=== PATIENT | male | born 1935 ===

== ENCOUNTER 2023-04-01 10:03 | Emergency (ER) | payer MEDICARE, BC ==
[2023-04-01] MEDS ORDERED: Sodium Chloride 0.9% 10 ML Syringe FLUSH PRN (10:22)
[2023-04-01] MEDS ORDERED: Aspirin 81 MG Tab.Chew PO ONE (10:24)
[2023-04-01 10:27] LABS: ALANINE AMINOTRANSFERASE,ALT 40 U/L (12-78); ALKALINE PHOSPHATASE 93 IU/L (46-116); ASPARTATE AMNIOTRANSFERASE,AST 46 U/L (15-37); BILIRUBIN TOTAL 0.6 mg/dL (0.2-1.0); BLOOD UREA NITROGEN,BUN 38 mg/dL (7-18); CALCIUM 8.7 mg/dL (8.5-10.1); CARBON DIOXIDE,CO2 26.2 mmol/L (21.0-32.0); CHLORIDE,CL 94 mmol/L (98-107); ESTIMATED GFR 41 mL/min (>=60); GLUCOSE RANDOM 120 mg/dL (70-99); POTASSIUM,K 4.2 mmol/L (3.5-5.1); PROTEIN TOTAL,TP 7.6 g/dL (6.4-8.2); SODIUM,NA 130 mmol/L (136-145)
[2023-04-01 10:32] LABS: BASOPHILS ABSOLUTE AUTO 0.02 K/uL (0.00-0.20); BASOPHILS PERCENT AUTO 0.2 % (0.0-2.0); EOSINOPHILS ABSOLUTE AUTO 0.26 K/uL (0.00-0.50); EOSINOPHILS PERCENT AUTO 2.9 % (0.0-5.0); HEMATOCRIT 37.9 % (39.0-49.0); HEMOGLOBIN 12.7 g/dL (13.1-16.8); LYMPHOCYTES ABSOLUTE AUTO 1.52 K/uL (0.50-3.50); LYMPHOCYTES PERCENT AUTO 16.8 % (10.0-50.0); MEAN CORPUSCULAR HEMOGLOBIN 28.3 pg (28.2-33.3); MEAN CORPUSCULAR HGB CONC 33.5 g/dL (31.7-36.0); MEAN CORPUSCULAR VOLUME 84.4 fL (84.0-98.0); MONOCYTES ABSOLUTE AUTO 1.39 K/uL (0.00-1.00); MONOCYTES PERCENT AUTO 15.4 % (2.0-14.0); NEUTROPHILS ABSOLUTE AUTO 5.86 K/uL (1.40-7.00); NEUTROPHILS PERCENT AUTO 64.7 % (45.0-80.0); PLATELET COUNT,PLT 322 K/uL (150-350); RED BLOOD CELL COUNT 4.49 M/uL (4.33-5.41); RED CELL DISTRIBUTION WIDTH 13.8 % (11.2-14.1); WHITE BLOOD CELL COUNT,WBC 9.1 K/uL (4.0-10.2)
[2023-04-01 10:48] LABS: LACTIC ACID 1.6 mmol/L (0.4-2.0)
[2023-04-01 10:49] LABS: MAGNESIUM 2.4 mg/dL (1.8-2.4)
[2023-04-01 10:50] LABS: PRO B-TYPE NATRIUR PEPT,BNPPRO 5114 pg/mL (0-125)
[2023-04-01 10:52] LABS: PTT,PARTIAL THROMBOPLSTIN TIME 29.6 SEC (23.6-29.8)
[2023-04-01] MEDS ORDERED: Ondansetron 4 MG/2 ML SDV IVPUSH ONE (10:57)
[2023-04-01] MEDS ORDERED: Heparin Sodium 5,000 Units/ML Vial IVPUSH ONE (10:57)
[2023-04-01] MEDS ORDERED: Ticagrelor 90 MG Tab PO ONE (10:57)
[2023-04-01] MEDS ORDERED: Heparin Sodium/0.45% NaCl 500 ML IV SCH (11:00)
[2023-04-01] MEDS ORDERED: Sodium Chloride 0.9% 500 ML IV SCH (11:30)
[2023-04-01] MEDS ORDERED: atorvaSTATin 40 MG Tab PO ONE (11:42)
[2023-04-01] MEDS ORDERED: Metoprolol Tartrate 25 MG Tab PO ONE (11:43)
== END 2023-04-01 12:20 ==
LOC: LL.ED 10:03
DX: I21.3 ST elevation (STEMI) myocardial infarction of unspecified site (principal); I10 Essential (primary) hypertension; K21.9 Gastro-esophageal reflux disease without esophagitis; Z79.899 Other long term (current) drug therapy
CPT/HCPCS: 36415; 71045; 80053; 83605; 83735; 83880; 84484; 85025; 85379; 85610; 85730; 93005; 96365; 96375; 99285-25; A9270-GY; J1644; J2405; J7040

== ENCOUNTER 2023-04-03 17:54 | Emergency (ER) | payer MEDICARE, BC ==
[2023-04-03] MEDS ORDERED: Sodium Chloride 0.9% 10 ML Syringe FLUSH PRN (18:06)
[2023-04-03 18:13] LABS: BASOPHILS ABSOLUTE AUTO 0.02 K/uL (0.00-0.20); BASOPHILS PERCENT AUTO 0.2 % (0.0-2.0); EOSINOPHILS ABSOLUTE AUTO 0.19 K/uL (0.00-0.50); EOSINOPHILS PERCENT AUTO 1.9 % (0.0-5.0); HEMOGLOBIN 11.5 g/dL (13.1-16.8); LYMPHOCYTES ABSOLUTE AUTO 1.26 K/uL (0.50-3.50); LYMPHOCYTES PERCENT AUTO 12.6 % (10.0-50.0); MEAN CORPUSCULAR HEMOGLOBIN 28.6 pg (28.2-33.3); MEAN CORPUSCULAR HGB CONC 33.8 g/dL (31.7-36.0); MEAN CORPUSCULAR VOLUME 84.6 fL (84.0-98.0); MONOCYTES ABSOLUTE AUTO 1.31 K/uL (0.00-1.00); MONOCYTES PERCENT AUTO 13.1 % (2.0-14.0); NEUTROPHILS ABSOLUTE AUTO 7.22 K/uL (1.40-7.00); NEUTROPHILS PERCENT AUTO 72.2 % (45.0-80.0); PLATELET COUNT,PLT 377 K/uL (150-350); RED BLOOD CELL COUNT 4.02 M/uL (4.33-5.41); RED CELL DISTRIBUTION WIDTH 13.7 % (11.2-14.1)
[2023-04-03 18:34] LABS: INR 1.1 (0.9-1.1); PROTHROMBIN TIME 10.7 SEC (9.0-11.1)
[2023-04-03 18:38] LABS: ALANINE AMINOTRANSFERASE,ALT 46 U/L (12-78); ALBUMIN 2.8 g/dL (3.4-5.0); ALKALINE PHOSPHATASE 98 IU/L (46-116); ASPARTATE AMNIOTRANSFERASE,AST 54 U/L (15-37); BILIRUBIN TOTAL 0.4 mg/dL (0.2-1.0); BLOOD UREA NITROGEN,BUN 48 mg/dL (7-18); CALCIUM 8.1 mg/dL (8.5-10.1); CARBON DIOXIDE,CO2 22.4 mmol/L (21.0-32.0); CHLORIDE,CL 98 mmol/L (98-107); CREATININE 1.66 mg/dL (0.51-1.17); GLUCOSE RANDOM 120 mg/dL (70-99); MAGNESIUM 2.4 mg/dL (1.8-2.4); POTASSIUM,K 4.1 mmol/L (3.5-5.1); PRO B-TYPE NATRIUR PEPT,BNPPRO 7362 pg/mL (0-125); PROTEIN TOTAL,TP 6.9 g/dL (6.4-8.2); SODIUM,NA 132 mmol/L (136-145)
[2023-04-03 18:40] LABS: ANION GAP 15.7 meq/L (7-15); ESTIMATED GFR 39 mL/min (>=60)
[2023-04-03] MEDS: LORazepam 0.5 MG Tab PO ONE (19:03)
[2023-04-03] MEDS: Sodium Chloride 0.9% 500 ML IV SCH (19:55)
== END 2023-04-03 19:56 ==
LOC: LL.ED 17:54
DX: I48.91 Unspecified atrial fibrillation (principal); I11.0 Hypertensive heart disease with heart failure; I50.9 Heart failure, unspecified; K21.9 Gastro-esophageal reflux disease without esophagitis; Z87.891 Personal history of nicotine dependence; Z79.82 Long term (current) use of aspirin; Z79.899 Other long term (current) drug therapy; Z88.8 Allergy status to other drugs, medicaments and biological substances
CPT/HCPCS: 36415; 71045; 74018; 80053; 83605; 83735; 83880; 84484; 85025; 85379; 85610; 93005; 93010; 99284; 99285; A9270-GY; J7040

== ENCOUNTER 2023-04-07 08:43 | Inpatient (IN) | payer MEDICARE, BC ==
[2023-04-07] MEDS ORDERED: diphenhydrAMINE 25 MG Cap PO PRN (19:58)
[2023-04-07] MEDS: atorvaSTATin 40 MG Tab PO SCH (20:32)
[2023-04-07] MEDS: Ticagrelor 90 MG Tab PO SCH (20:32)
[2023-04-07] MEDS: Apixaban 5 MG Tab PO SCH (20:32)
[2023-04-07] MEDS: Nortriptyline 25 MG Cap PO SCH (20:32)
[2023-04-07] MEDS: Vitamin B Complex Tab PO SCH (20:32)
[2023-04-07] MEDS: Melatonin 3 MG Tab PO PRN (21:26)
[2023-04-07] MEDS: diphenhydrAMINE 25 MG Cap PO PRN (22:36)
[2023-04-08] MEDS: Omeprazole 20 MG Cap.CR PO SCH (07:17)
[2023-04-08] MEDS: Metoprolol Succinate 50 MG Tab.ER PO SCH (08:28)
[2023-04-08] MEDS: Ticagrelor 90 MG Tab PO SCH ×2 (08:28→17:38)
[2023-04-08] MEDS: Multivitamin Tab PO SCH (08:28)
[2023-04-08] MEDS: Apixaban 5 MG Tab PO SCH ×2 (08:28→17:38)
[2023-04-08] MEDS: Fish Oil/Omega-3 Fatty Acids 1 Gm Cap PO SCH (08:29)
[2023-04-08] MEDS: atorvaSTATin 40 MG Tab PO SCH (19:29)
[2023-04-08] MEDS: Nortriptyline 25 MG Cap PO SCH (19:29)
[2023-04-08] MEDS: Vitamin B Complex Tab PO SCH (19:29)
[2023-04-08] MEDS: Melatonin 3 MG Tab PO PRN (21:21)
[2023-04-09] MEDS: Fish Oil/Omega-3 Fatty Acids 1 Gm Cap PO SCH (07:21)
[2023-04-09] MEDS: Omeprazole 20 MG Cap.CR PO SCH (07:21)
[2023-04-09] MEDS: Multivitamin Tab PO SCH (07:21)
[2023-04-09] MEDS: Apixaban 5 MG Tab PO SCH ×2 (07:22→17:18)
[2023-04-09] MEDS: Metoprolol Succinate 50 MG Tab.ER PO SCH (07:23)
[2023-04-09] MEDS: Ticagrelor 90 MG Tab PO SCH ×2 (07:23→17:18)
[2023-04-09] MEDS ORDERED: Acetaminophen 325 MG Tab PO PRN (07:46)
[2023-04-09] MEDS: Nortriptyline 25 MG Cap PO SCH (19:23)
[2023-04-09] MEDS: Vitamin B Complex Tab PO SCH (19:23)
[2023-04-09] MEDS: atorvaSTATin 40 MG Tab PO SCH (19:23)
[2023-04-09] MEDS: Melatonin 3 MG Tab PO PRN (21:17)
[2023-04-09] MEDS: diphenhydrAMINE 25 MG Cap PO PRN (23:11)
[2023-04-10] MEDS: Omeprazole 20 MG Cap.CR PO SCH (07:31)
[2023-04-10] MEDS: Multivitamin Tab PO SCH (07:31)
[2023-04-10] MEDS: Metoprolol Succinate 50 MG Tab.ER PO SCH (07:31)
[2023-04-10] MEDS: Apixaban 5 MG Tab PO SCH ×2 (07:31→17:09)
[2023-04-10] MEDS: Fish Oil/Omega-3 Fatty Acids 1 Gm Cap PO SCH (07:31)
[2023-04-10] MEDS: Ticagrelor 90 MG Tab PO SCH ×2 (07:32→17:09)
[2023-04-10] MEDS: atorvaSTATin 40 MG Tab PO SCH (19:28)
[2023-04-10] MEDS: Vitamin B Complex Tab PO SCH (19:28)
[2023-04-10] MEDS: Nortriptyline 25 MG Cap PO SCH (19:28)
[2023-04-10] MEDS: diphenhydrAMINE 25 MG Cap PO PRN (22:51)
[2023-04-10] MEDS: Melatonin 3 MG Tab PO PRN (22:51)
[2023-04-11] MEDS: Multivitamin Tab PO SCH (07:25)
[2023-04-11] MEDS: Omeprazole 20 MG Cap.CR PO SCH (07:25)
[2023-04-11] MEDS: Metoprolol Succinate 50 MG Tab.ER PO SCH (07:25)
[2023-04-11] MEDS: Fish Oil/Omega-3 Fatty Acids 1 Gm Cap PO SCH (07:25)
[2023-04-11] MEDS: Ticagrelor 90 MG Tab PO SCH ×2 (07:25→17:29)
[2023-04-11] MEDS: Apixaban 5 MG Tab PO SCH ×2 (07:25→17:29)
[2023-04-11] MEDS: Nortriptyline 25 MG Cap PO SCH (19:22)
[2023-04-11] MEDS: Vitamin B Complex Tab PO SCH (19:22)
[2023-04-11] MEDS: atorvaSTATin 40 MG Tab PO SCH (19:22)
[2023-04-11] MEDS: Acetaminophen 500 MG Tab PO PRN (21:43)
[2023-04-11] MEDS: diphenhydrAMINE 25 MG Cap PO PRN (21:43)
[2023-04-12] MEDS: Fish Oil/Omega-3 Fatty Acids 1 Gm Cap PO SCH (07:55)
[2023-04-12] MEDS: Multivitamin Tab PO SCH (07:56)
[2023-04-12] MEDS: Omeprazole 20 MG Cap.CR PO SCH (07:56)
[2023-04-12] MEDS: Metoprolol Succinate 50 MG Tab.ER PO SCH (07:56)
[2023-04-12] MEDS: Apixaban 5 MG Tab PO SCH ×2 (07:56→17:23)
[2023-04-12] MEDS: Ticagrelor 90 MG Tab PO SCH ×2 (07:56→17:23)
[2023-04-12] MEDS: Nortriptyline 25 MG Cap PO SCH (19:20)
[2023-04-12] MEDS: Vitamin B Complex Tab PO SCH (19:20)
[2023-04-12] MEDS: atorvaSTATin 40 MG Tab PO SCH (19:20)
[2023-04-12] MEDS: Acetaminophen 500 MG Tab PO PRN (21:55)
[2023-04-13 07:28] LABS: BASOPHILS ABSOLUTE AUTO 0.03 K/uL (0.00-0.20); BASOPHILS PERCENT AUTO 0.4 % (0.0-2.0); EOSINOPHILS ABSOLUTE AUTO 0.25 K/uL (0.00-0.50); EOSINOPHILS PERCENT AUTO 3.1 % (0.0-5.0); HEMATOCRIT 33.7 % (39.0-49.0); HEMOGLOBIN 10.9 g/dL (13.1-16.8); LYMPHOCYTES ABSOLUTE AUTO 1.59 K/uL (0.50-3.50); LYMPHOCYTES PERCENT AUTO 19.8 % (10.0-50.0); MEAN CORPUSCULAR HEMOGLOBIN 28.1 pg (28.2-33.3); MEAN CORPUSCULAR HGB CONC 32.3 g/dL (31.7-36.0); MEAN CORPUSCULAR VOLUME 86.9 fL (84.0-98.0); MONOCYTES ABSOLUTE AUTO 0.89 K/uL (0.00-1.00); MONOCYTES PERCENT AUTO 11.1 % (2.0-14.0); NEUTROPHILS ABSOLUTE AUTO 5.29 K/uL (1.40-7.00); NEUTROPHILS PERCENT AUTO 65.6 % (45.0-80.0); PLATELET COUNT,PLT 373 K/uL (150-350); RED BLOOD CELL COUNT 3.88 M/uL (4.33-5.41); RED CELL DISTRIBUTION WIDTH 14.3 % (11.2-14.1); WHITE BLOOD CELL COUNT,WBC 8.1 K/uL (4.0-10.2)
[2023-04-13] MEDS: Omeprazole 20 MG Cap.CR PO SCH (07:51)
[2023-04-13] MEDS: Ticagrelor 90 MG Tab PO SCH ×2 (07:51→18:21)
[2023-04-13] MEDS: Apixaban 5 MG Tab PO SCH ×2 (07:51→18:20)
[2023-04-13] MEDS: Multivitamin Tab PO SCH (07:51)
[2023-04-13] MEDS: Fish Oil/Omega-3 Fatty Acids 1 Gm Cap PO SCH (07:51)
[2023-04-13] MEDS ORDERED: Metoprolol Succinate 25 MG Tab.ER PO SCH (08:00)
[2023-04-13 08:06] LABS: ANION GAP 7.2 meq/L (7-15); CALCIUM 8.5 mg/dL (8.5-10.1); CARBON DIOXIDE,CO2 26.8 mmol/L (21.0-32.0); CREATININE 1.17 mg/dL (0.51-1.17); EST CRCL DRUG DOSING (CG) 42.22 mL/min; POTASSIUM,K 4.9 mmol/L (3.5-5.1)
[2023-04-13] MEDS ORDERED: Metoprolol Succinate 25 MG Tab.ER PO ONE (16:10)
[2023-04-14] MEDS ORDERED: Metoprolol Succinate 50 MG Tab.ER PO SCH (08:00)
== END 2023-04-13 19:15 | DRG 947 ==
LOC: LL.MS 13:14
PROVIDERS: ADMIT Physician Assistant; ATTEND Physician Assistant
DX: R53.83 Other fatigue (principal); I21.02 ST elevation (STEMI) myocardial infarction involving left anterior descending coronary artery; I50.22 Chronic systolic (congestive) heart failure; Z48.812 Encounter for surgical aftercare following surgery on the circulatory system; I48.0 Paroxysmal atrial fibrillation; R53.81 Other malaise; I11.0 Hypertensive heart disease with heart failure; K21.9 Gastro-esophageal reflux disease without esophagitis; G62.9 Polyneuropathy, unspecified; I25.10 Atherosclerotic heart disease of native coronary artery without angina pectoris; G47.31 Primary central sleep apnea; G47.00 Insomnia, unspecified; F32.A Depression, unspecified; R73.03 Prediabetes; Z79.01 Long term (current) use of anticoagulants; Z79.899 Other long term (current) drug therapy; Z88.5 Allergy status to narcotic agent; Z88.8 Allergy status to other drugs, medicaments and biological substances
CPT/HCPCS: 36415; 80048; 85025; 93005; 93010; 97110-GO; 97110-GP; 97129-GO; 97130-GO; 97162-GP; 97165-GO; 97530-GO; 99306; 99316; A9270-GY

== ENCOUNTER 2023-04-15 12:00 | Inpatient (IN) | payer MEDICARE, BC ==
[2023-04-15] MEDS: Ticagrelor 90 MG Tab PO SCH (17:36)
[2023-04-15] MEDS: Apixaban 5 MG Tab PO SCH (17:36)
[2023-04-15] MEDS ORDERED: Melatonin 3 MG Tab PO SCH (20:00)
[2023-04-15] MEDS: Nortriptyline 25 MG Cap PO SCH (20:03)
[2023-04-15] MEDS: atorvaSTATin 40 MG Tab PO SCH (20:04)
[2023-04-16] MEDS: Melatonin 3 MG Tab PO SCH ×2 (02:44→21:04)
[2023-04-16] MEDS: Omeprazole 20 MG Cap.CR PO SCH (08:13)
[2023-04-16] MEDS: Ticagrelor 90 MG Tab PO SCH ×2 (08:13→17:41)
[2023-04-16] MEDS: Apixaban 5 MG Tab PO SCH ×2 (08:14→17:41)
[2023-04-16] MEDS: Metoprolol Succinate 50 MG Tab.ER PO SCH (08:14)
[2023-04-16] MEDS: atorvaSTATin 40 MG Tab PO SCH (21:03)
[2023-04-16] MEDS: Nortriptyline 25 MG Cap PO SCH (21:04)
[2023-04-17] MEDS: Ticagrelor 90 MG Tab PO SCH (07:43)
[2023-04-17] MEDS: Metoprolol Succinate 50 MG Tab.ER PO SCH (07:43)
[2023-04-17] MEDS: Apixaban 5 MG Tab PO SCH (07:43)
[2023-04-17] MEDS: Omeprazole 20 MG Cap.CR PO SCH (07:43)
== END 2023-04-17 13:33 | DRG 947 ==
LOC: LL.MS 15:24 → OBSVTOIN 15:24
PROVIDERS: ADMIT Emergency Medicine; ATTEND Emergency Medicine
DX: R53.1 Weakness (principal); I21.3 ST elevation (STEMI) myocardial infarction of unspecified site; I48.91 Unspecified atrial fibrillation; F41.9 Anxiety disorder, unspecified; I11.0 Hypertensive heart disease with heart failure; I50.9 Heart failure, unspecified; Z66 Do not resuscitate; E78.5 Hyperlipidemia, unspecified; G62.9 Polyneuropathy, unspecified; G47.00 Insomnia, unspecified; K21.9 Gastro-esophageal reflux disease without esophagitis; G47.30 Sleep apnea, unspecified; Z88.8 Allergy status to other drugs, medicaments and biological substances; Z98.49 Cataract extraction status, unspecified eye; Z79.01 Long term (current) use of anticoagulants; Z79.899 Other long term (current) drug therapy; Z95.5 Presence of coronary angioplasty implant and graft; Z95.820 Peripheral vascular angioplasty status with implants and grafts
CPT/HCPCS: 97110-GP; 97161-GP; 97165-GO; A9270-GY

== ENCOUNTER 2023-04-24 12:06 | Emergency (ER) | payer MEDICARE, BC ==
[2023-04-24 12:37] LABS: BASOPHILS ABSOLUTE AUTO 0.03 K/uL (0.00-0.20); BASOPHILS PERCENT AUTO 0.4 % (0.0-2.0); EOSINOPHILS ABSOLUTE AUTO 0.22 K/uL (0.00-0.50); HEMATOCRIT 35.8 % (39.0-49.0); HEMOGLOBIN 11.4 g/dL (13.1-16.8); LYMPHOCYTES ABSOLUTE AUTO 1.26 K/uL (0.50-3.50); LYMPHOCYTES PERCENT AUTO 17.3 % (10.0-50.0); MEAN CORPUSCULAR HEMOGLOBIN 28.1 pg (28.2-33.3); MEAN CORPUSCULAR HGB CONC 31.8 g/dL (31.7-36.0); MEAN CORPUSCULAR VOLUME 88.4 fL (84.0-98.0); MONOCYTES ABSOLUTE AUTO 0.85 K/uL (0.00-1.00); MONOCYTES PERCENT AUTO 11.7 % (2.0-14.0); NEUTROPHILS ABSOLUTE AUTO 4.91 K/uL (1.40-7.00); NEUTROPHILS PERCENT AUTO 67.6 % (45.0-80.0); PLATELET COUNT,PLT 298 K/uL (150-350); RED BLOOD CELL COUNT 4.05 M/uL (4.33-5.41); RED CELL DISTRIBUTION WIDTH 15.2 % (11.2-14.1); WHITE BLOOD CELL COUNT,WBC 7.3 K/uL (4.0-10.2)
[2023-04-24 12:50] LABS: ALANINE AMINOTRANSFERASE,ALT 27 U/L (12-78); ALKALINE PHOSPHATASE 106 IU/L (46-116); ANION GAP 8.3 meq/L (7-15); ASPARTATE AMNIOTRANSFERASE,AST 23 U/L (15-37); BILIRUBIN TOTAL 0.5 mg/dL (0.2-1.0); BLOOD UREA NITROGEN,BUN 20 mg/dL (7-18); CALCIUM 8.4 mg/dL (8.5-10.1); CARBON DIOXIDE,CO2 25.7 mmol/L (21.0-32.0); CHLORIDE,CL 106 mmol/L (98-107); CREATININE 1.24 mg/dL (0.51-1.17); GLUCOSE RANDOM 123 mg/dL (70-99); POTASSIUM,K 3.9 mmol/L (3.5-5.1); PROTEIN TOTAL,TP 6.6 g/dL (6.4-8.2); SODIUM,NA 140 mmol/L (136-145)
[2023-04-24 12:51] LABS: INR 1.1 (0.9-1.1); PROTHROMBIN TIME 11.3 SEC (9.0-11.1); PTT,PARTIAL THROMBOPLSTIN TIME 28.7 SEC (23.6-29.8)
[2023-04-24 12:53] LABS: ESTIMATED GFR 56 mL/min (>=60)
[2023-04-24 13:14] LABS: APPEARANCE,URINE CLEAR; BILIRUBIN,URINE NEGATIVE (NEGATIVE); COLOR,URINE YELLOW; GLUCOSE,URINE NEGATIVE (NEGATIVE); KETONES,URINE NEGATIVE (NEGATIVE); LEUKOCYTE ESTERASE,URINE NEGATIVE (NEGATIVE); NITRITE,URINE NEGATIVE (NEGATIVE); OCCULT BLOOD,URINE NEGATIVE (NEGATIVE); PROTEIN,URINE 30 mg/dL (NEGATIVE)
[2023-04-24 13:21] LABS: HYALINE CASTS,URINE FEW; MUCUS,URINE FEW /LPF (NEGATIVE); RBC,URINE 0-5 /HPF; WBC,URINE 0-5 /HPF
== END 2023-04-24 14:00 | disposition home or self-care (01) ==
LOC: LL.ED 12:06
DX: S09.90XA Unspecified injury of head, initial encounter (principal); I25.10 Atherosclerotic heart disease of native coronary artery without angina pectoris; I11.0 Hypertensive heart disease with heart failure; I50.9 Heart failure, unspecified; I48.0 Paroxysmal atrial fibrillation; K21.9 Gastro-esophageal reflux disease without esophagitis; Z88.5 Allergy status to narcotic agent; Z88.8 Allergy status to other drugs, medicaments and biological substances; W19.XXXA Unspecified fall, initial encounter
CPT/HCPCS: 36415; 70450; 72040; 80053; 81001; 83735; 84484; 85025; 85610; 85730; 93005; 99284

== ENCOUNTER 2023-05-03 10:45 | Emergency (ER) | payer MEDICARE, BC ==
[2023-05-03] MEDS ORDERED: Sodium Chloride 0.9% 10 ML Syringe FLUSH PRN (10:54)
[2023-05-03 11:11] LABS: BASOPHILS ABSOLUTE AUTO 0.01 K/uL (0.00-0.20); BASOPHILS PERCENT AUTO 0.1 % (0.0-2.0); EOSINOPHILS ABSOLUTE AUTO 0.06 K/uL (0.00-0.50); EOSINOPHILS PERCENT AUTO 0.7 % (0.0-5.0); HEMOGLOBIN 11.4 g/dL (13.1-16.8); LYMPHOCYTES ABSOLUTE AUTO 1.02 K/uL (0.50-3.50); LYMPHOCYTES PERCENT AUTO 11.1 % (10.0-50.0); MEAN CORPUSCULAR HEMOGLOBIN 27.7 pg (28.2-33.3); MEAN CORPUSCULAR HGB CONC 31.7 g/dL (31.7-36.0); MEAN CORPUSCULAR VOLUME 87.6 fL (84.0-98.0); MONOCYTES ABSOLUTE AUTO 1.01 K/uL (0.00-1.00); NEUTROPHILS ABSOLUTE AUTO 7.05 K/uL (1.40-7.00); NEUTROPHILS PERCENT AUTO 77.1 % (45.0-80.0); PLATELET COUNT,PLT 309 K/uL (150-350); RED BLOOD CELL COUNT 4.11 M/uL (4.33-5.41); RED CELL DISTRIBUTION WIDTH 15.8 % (11.2-14.1); WHITE BLOOD CELL COUNT,WBC 9.2 K/uL (4.0-10.2)
[2023-05-03 11:42] LABS: ALANINE AMINOTRANSFERASE,ALT 51 U/L (12-78); ALBUMIN 3.1 g/dL (3.4-5.0); ALKALINE PHOSPHATASE 110 IU/L (46-116); ANION GAP 7.6 meq/L (7-15); ASPARTATE AMNIOTRANSFERASE,AST 30 U/L (15-37); BILIRUBIN TOTAL 0.5 mg/dL (0.2-1.0); BLOOD UREA NITROGEN,BUN 22 mg/dL (7-18); CALCIUM 8.4 mg/dL (8.5-10.1); CARBON DIOXIDE,CO2 24.4 mmol/L (21.0-32.0); CHLORIDE,CL 104 mmol/L (98-107); CREATININE 1.11 mg/dL (0.51-1.17); GLUCOSE RANDOM 109 mg/dL (70-99); POTASSIUM,K 4.2 mmol/L (3.5-5.1); PRO B-TYPE NATRIUR PEPT,BNPPRO 8673 pg/mL (0-125); PROTEIN TOTAL,TP 6.5 g/dL (6.4-8.2); SODIUM,NA 136 mmol/L (136-145)
[2023-05-03 11:46] LABS: ESTIMATED GFR 64 mL/min (>=60)
[2023-05-03] MEDS ORDERED: Furosemide 40 MG/4 ML VIAL IVPUSH ONE (12:26)
[2023-05-03 13:26] LABS: APPEARANCE,URINE CLEAR; BILIRUBIN,URINE NEGATIVE (NEGATIVE); COLOR,URINE YELLOW; GLUCOSE,URINE NEGATIVE (NEGATIVE); KETONES,URINE NEGATIVE (NEGATIVE); LEUKOCYTE ESTERASE,URINE NEGATIVE (NEGATIVE); NITRITE,URINE NEGATIVE (NEGATIVE); OCCULT BLOOD,URINE NEGATIVE (NEGATIVE); PH,URINE 5.5 (5.0-9.0); PROTEIN,URINE 30 mg/dL (NEGATIVE); UROBILINOGEN,URINE 0.2 E.U./dL (0.2-1.0)
[2023-05-03 13:40] LABS: AMORPHOUS SEDIMENT,URINE RARE /HPF (0/HPF); BACTERIA,URINE NOT SEEN /HPF (NONE TO FEW); EPITHELIAL CELLS,URINE FEW /LPF; HYALINE CASTS,URINE RARE; MUCUS,URINE MODERATE /LPF (NEGATIVE); RBC,URINE 0-5 /HPF; WBC,URINE 0-5 /HPF
[2023-05-03] MEDS ORDERED: LORazepam 0.5 MG Tab PO ONE (14:51)
[2023-05-03] MEDS ORDERED: Potassium Bicarbonate/Cit Ac 20 MEQ Effervescent Tab PO ONE (14:52)
[2023-05-03] MEDS ORDERED: Magnesium Oxide 400 MG Tab PO ONE (15:06)
== END 2023-05-03 16:04 | disposition home or self-care (01) ==
LOC: LL.ED 10:45
DX: I11.0 Hypertensive heart disease with heart failure (principal); I50.9 Heart failure, unspecified; K21.9 Gastro-esophageal reflux disease without esophagitis; Z88.5 Allergy status to narcotic agent; Z88.8 Allergy status to other drugs, medicaments and biological substances; Z79.01 Long term (current) use of anticoagulants; Z79.899 Other long term (current) drug therapy
CPT/HCPCS: 36415; 71045; 80053; 81001; 83605; 83735; 83880; 84484; 85025; 85379; 93005; 93010; 96374; 99284; 99285-25; A9270-GY; J1940; J3490